=== PATIENT | female | born 1950 | race Hispanic/Latino ===

== ENCOUNTER 2019-01-22 10:50 | Day surgery (SDC) | payer MEDICARE, BC ==
[2019-01-17 13:26] VITALS: BMI 25.0
[2019-01-22] MEDS ORDERED: Midazolam 2 MG/2 ML VIAL ONE (14:21)
[2019-01-22] MEDS ORDERED: Propofol 10 mg/ml Inj (20 ML) ONE (14:21)
[2019-01-22] MEDS ORDERED: Lidocaine Hydrochloride 5 ML INJ ONE (14:23)
[2019-01-22] MEDS ORDERED: HYDROmorphone 0.5 mg/0.5 ml ISec IVP PRN (14:49)
[2019-01-22] MEDS ORDERED: Clindamycin 2% Vaginal Cream(40 gm) ONE (15:08)
[2019-01-22 17:00] VITALS: RESP 18
[2019-01-22 17:34] VITALS: BP 143/77; PULSE 84; TEMP 97.9; O2SAT 98
--- NOTE | 2019-01-23 01:15 | OP ---
PROCEDURE DATE: 01/22/2019 PREOPERATIVE DIAGNOSES: Postmenopausal bleeding, endometrial polyps, submucosal mass, cervical stenosis. POSTOPERATIVE DIAGNOSES: Postmenopausal bleeding, endometrial polyps, submucosal mass, cervical stenosis. PROCEDURES PERFORMED: Hysteroscopic myomectomy, resection of submucosal mass, dilatation and curettage. SURGEON: Sharon Thornton MD FLIGHT TOWER DISPATCHER: None. TYPE OF ANESTHESIA: General LMA. SPECIMEN REMOVED: Submucosal myoma, endometrial mass, endocervical curettings, endometrial curettings. OPERATIVE FINDINGS: Narrow vaginal introitus with cervical stenosis dilated with cervical dilator. Uterus sounded to 7 cm, mass noted within the endometrial cavity. Frozen specimen sample, possible myoma versus suspicious mass. Bilateral ostia visualized. Good hemostasis noted. ESTIMATED BLOOD LOSS: 10 mL. COMPLICATIONS: None. DESCRIPTION OF PROCEDURE: The patient was taken to the operating room where she was given general anesthesia. Once it was found to be adequate, she was placed on the operating table in dorsal supine position with legs supported using stirrups. The patient was then prepped and draped in the usual sterile fashion. A time-out confirmed correct patient and correct procedure. Bimanual exam was performed with above-mentioned findings. A Arguello retractor was placed in the anterior and posterior fornix of the vagina. Cervix was adequately visualized. A single-tooth tenaculum was placed on the anterior lip of the cervix. Endocervical curettings were obtained with a Kevorkian curette was sequentially dilated using normal saline. Cervix was sequentially dilated to allow for introduction of hysteroscope under direct visualization using normal saline as distention media, mass was noted. The MyoSure device was then carefully inserted under direct visualization. Specimen was obtained. MyoSure device was then removed, there appeared to be possible myoma versus mass. The hysteroscope was removed and gentle curettage was done. The hysteroscope was reintroduced, there was good hemostasis noted. was removed. All instruments removed. At end of the procedure, all needle, sponge, and instrument counts were noted and correct x2. The patient tolerated the procedure well and was transferred to the recovery room in stable condition. Sharon Thornton MD [facility] # [id number]
== END 2019-01-22 17:37 | disposition home or self-care (01) ==
LOC: C.SDS 10:50
PROVIDERS: ATTEND Obstetrics & Gynecology
DX: C54.1 Malignant neoplasm of endometrium (principal); N88.2 Stricture and stenosis of cervix uteri; N84.0 Polyp of corpus uteri; N95.0 Postmenopausal bleeding
CPT/HCPCS: 57505; 58561; 88305; J1885; J2250; J2405; J2704; J3010